=== PATIENT | male | born 1960 | race Caucasian/White ===

== ENCOUNTER → 2016-12-01 | Outpatient (CLI) | payer BC ==
[~2016-12-01] MED LIST: CABOMETYX60 MG PO; CALCIUM CITRATE1 TA1 PO; COLACE 100100 MG/CAP; FLEXERIL 1010 MG/TAB PO; FLONASEALLERGY; HYSINGLA20 PO; IRON325 MG PO; LOTENSIN40 MG PO; MS CONTIN 330 MG/TAB PO; MULTI VITAMINS1 TAB PO; NATURAL IRON65 MG PO; NORCO 325 MG-51 TAB PO; NORCO 325 MG-7.1 TAB PO; NORVASC 10MG10 MG PO; PREDNISONE10 MG PO; TYLENOL 500MG500 MG PO; ZOMETA4 MG/5 ML IV
== END ==
LOC: COL.RAD 09:40
PROVIDERS: Urology
DX: C64.2 Malignant neoplasm of left kidney, except renal pelvis (principal); C79.31 Secondary malignant neoplasm of brain; D38.1 Neoplasm of uncertain behavior of trachea, bronchus and lung; R93.7 Abnormal findings on diagnostic imaging of other parts of musculoskeletal system; R93.422 Abnormal radiologic findings on diagnostic imaging of left kidney
CPT/HCPCS: A9503; Q9967

== ENCOUNTER 2016-12-24 23:30 | Emergency (ER) | payer BC ==
[~2016-12-24] VITALS: Ht 182.9 cm; Wt 136.8 kg
[2016-12-24 23:45] VITALS: BP 151/80; TEMP 98.1
[2016-12-24] MEDS ORDERED: LOTENSIN40 MG PO (23:50)
[2016-12-24] MEDS ORDERED: MULTI VITAMINS1 TAB PO (23:51)
[2016-12-24] MEDS ORDERED: IRON325 MG PO (23:51)
[2016-12-24] MEDS ORDERED: FLONASEALLERGY (23:51)
[2016-12-24] MEDS ORDERED: COLACE 100100 MG/CAP (23:52)
[2016-12-25] MEDS ORDERED: PREDNISONE10 MG PO (01:14)
[2016-12-25] MEDS ORDERED: NORCO 325 MG-51 TAB PO (01:14)
[2016-12-25 02:03] VITALS: PULSE 76
== END 2016-12-25 02:04 | disposition home or self-care (01) ==
LOC: COL.ER 23:30
DX: M54.16 Radiculopathy, lumbar region (principal); W88.0XXA Exposure to X-rays, initial encounter; Y92.239 Unspecified place in hospital as the place of occurrence of the external cause; C79.31 Secondary malignant neoplasm of brain; C79.51 Secondary malignant neoplasm of bone; C64.2 Malignant neoplasm of left kidney, except renal pelvis
CPT/HCPCS: J1170; J2405; J2930

== ENCOUNTER 2017-08-06 04:06 | Observation (INO) | payer BC ==
[~2017-08-06] VITALS: Ht 188 cm; Wt 125.5 kg
[~2017-08-06 04:06] MED LIST changes: -CABOMETYX60 MG PO; -CALCIUM CITRATE1 TA1 PO; -FLEXERIL 1010 MG/TAB PO; -HYSINGLA20 PO; -MS CONTIN 330 MG/TAB PO; -NATURAL IRON65 MG PO; -NORCO 325 MG-7.1 TAB PO; -NORVASC 10MG10 MG PO; -TYLENOL 500MG500 MG PO; -ZOMETA4 MG/5 ML IV
[2017-08-06] MEDS ORDERED: HYSINGLA20 PO (06:00)
[2017-08-06] MEDS ORDERED: CABOMETYX60 MG PO (06:00)
[2017-08-06] MEDS ORDERED: NATURAL IRON65 MG PO (06:00)
[2017-08-06] MEDS ORDERED: NORCO 325 MG-51 TAB PO (06:00)
[2017-08-06] MEDS ORDERED: NORVASC 10MG10 MG PO (06:01)
[2017-08-06] MEDS ORDERED: LOTENSIN40 MG PO (06:01)
[2017-08-06] MEDS ORDERED: TYLENOL 500MG500 MG PO (06:01)
[2017-08-06] MEDS ORDERED: CALCIUM CITRATE1 TA1 PO (06:02)
[2017-08-06 06:20] LABS: BASO % 0.4 % (0.0-2.0); EOS # 0.1 (0.0-0.7); GRAN % 69.4 % (42.2-75.2); HEMATOCRIT 38.9 % (42.0-52.0); HEMOGLOBIN 13.1 g/dl (13.5-18.0); LYMPH # 1.4 (1.2-3.4); LYMPH % 19.4 % (20.0-51.0); MEAN CELL VOLUME 91 fl (80.0-100.0); MEAN CORPUSCULAR HEMOGLOBIN 31 pg (27.0-31.0); MEAN CORPUSCULAR HGB CONC 34 g/dl (33.0-37.0); MEAN PLATELET VOLUME 8.2 fl (7.4-10.4); MONO # 0.6 (0.1-0.6); MONO % 8.5 % (1.7-9.3); PLATELET COUNT 272 K/mm3 (130-400); RED BLOOD COUNT 4.28 M/mm3 (4.20-5.60); REDCELL DISTRIBUTION WIDTH-CV 15.3 % (11.5-14.5); WHITE BLOOD COUNT 7.2 K/mm3 (4.8-10.8)
[2017-08-06 06:32] LABS: ADJUSTED CALCIUM 9.5 mg/dL (8.4-10.2); ALBUMIN 3.6 gm/dL (3.5-5.0); CALCIUM 9.2 mg/dL (8.4-10.2); CREATININE, serum 1.05 mg/dL (0.66-1.25); POTASSIUM 4.9 mmol/L (3.4-5.0); TOTAL PROTEIN 6.5 gm/dL (6.4-8.2)
[2017-08-06 09:38] LABS: PH 6 (5-8); SQUAMOUS EPITHELIAL None Seen /hpf; URINE APPEARANCE Clear; URINE BACTERIA None Seen /hpf; URINE BILIRUBIN Negative (NEGATIVE); URINE BLOOD Negative (NEGATIVE); URINE COLOR Straw; URINE GLUCOSE Negative (NEGATIVE); URINE KETONE Negative (NEGATIVE); URINE RBC 0-2 /hpf; URINE UROBILINOGEN Negative (NEGATIVE); URINE WBC None Seen /hpf
[2017-08-06] MEDS ORDERED: ZOMETA4 MG/5 ML IV (10:37)
[2017-08-06 10:39] VITALS: BP 113/68; PULSE 70; TEMP 98.3
[2017-08-06 15:44] VITALS: BP 106/52; PULSE 73; TEMP 98.5
[2017-08-06 20:30] VITALS: BP 108/64; PULSE 66; TEMP 97.9
[2017-08-07 00:06] VITALS: BP 95/78; PULSE 62; TEMP 97.9
[2017-08-07 04:31] VITALS: BP 105/65; PULSE 65; TEMP 98.2
[2017-08-07 08:00] VITALS: BP 109/67; PULSE 66; TEMP 97.5
[2017-08-07] MEDS ORDERED: FLEXERIL 1010 MG/TAB PO (10:02)
[2017-08-07] MEDS ORDERED: MS CONTIN 330 MG/TAB PO (10:03)
[2017-08-07] MEDS ORDERED: NORCO 325 MG-7.1 TAB PO (10:03)
== END 2017-08-07 11:52 | disposition home or self-care (01) ==
LOC: COL.ER 04:06 → MEDICAL 08:52
PROVIDERS: Emergency Medicine
DX: M48.56XA Collapsed vertebra, not elsewhere classified, lumbar region, initial encounter for fracture (principal); C64.9 Malignant neoplasm of unspecified kidney, except renal pelvis; I10 Essential (primary) hypertension; C78.00 Secondary malignant neoplasm of unspecified lung; C77.1 Secondary and unspecified malignant neoplasm of intrathoracic lymph nodes; C79.70 Secondary malignant neoplasm of unspecified adrenal gland; E66.9 Obesity, unspecified; Z80.8 Family history of malignant neoplasm of other organs or systems; Z81.8 Family history of other mental and behavioral disorders
CPT/HCPCS: G0378; G8987-GO; G8988-GO; J2270; J7030; Q9967

== ENCOUNTER 2018-02-22 07:30 | Outpatient (RCR) | payer BC ==
[~2018-02-22 07:30] MED LIST changes: +CABOMETYX60 MG PO; +CALCIUM CITRATE1 TA1 PO; +FLEXERIL 1010 MG/TAB PO; +HYSINGLA20 PO; +MS CONTIN 330 MG/TAB PO; +NATURAL IRON65 MG PO; +NORCO 325 MG-7.1 TAB PO; +NORVASC 10MG10 MG PO; +TYLENOL 500MG500 MG PO; +ZOMETA4 MG/5 ML IV
[2018-02-22] MEDS ORDERED: [UNRECOGNIZED DRUG - CODE] PO (07:49)
[2018-02-22 08:39] VITALS: BP 106/53; PULSE 68; TEMP 98.3
[2018-02-22 09:03] VITALS: BP 106/50; PULSE 16; TEMP 98.3
[2018-02-22 10:26] VITALS: BP 101/54; PULSE 65; TEMP 98.1
[2018-04-26] MEDS ORDERED: ZYRTEC ALLERGY10 MG PO (15:06)
[2018-04-26] MEDS ORDERED: LENVIMA18 MG PO (15:07)
[2018-05-01] MEDS ORDERED: PACERONE400 MG PO (13:30)
[2018-05-01] MEDS ORDERED: IPRATROPIUM BROM3 M1 IH (13:30)
[2018-05-01] MEDS ORDERED: ATIVAN 1MG T1 MG/TAB PO (13:31)
[2018-05-01] MEDS ORDERED: ROXANOL 20MG20 MG/ML SL (13:31)
[2018-05-01] MEDS ORDERED: SENOKOT S 50 MG1 TAB PO (13:32)
[2018-05-01] MEDS ORDERED: DULCOLAX S10 MG/SUPP RC (13:32)
[2018-05-01] MEDS ORDERED: SYNTHROID 0.0.025 MG PO (13:33)
[2018-05-01] MEDS ORDERED: TRANSDERM-0.5 MG/21 TD (13:33)
[2018-05-01] MEDS ORDERED: MELAT3MGTAB PO (13:33)
[2018-05-01] MEDS ORDERED: ZOFRAN ODT4 MG PO (13:34)
[2018-05-01] MEDS ORDERED: LEVAQUIN 750MG750 M1 PO ×2 (14:33)
[2018-05-03] MEDS ORDERED: OMNICEF 300MG300 MG PO (14:23)
== END 2018-05-22 | disposition home or self-care (01) ==
LOC: EUO → EDSTATUS 07:30
DX: C64.2 Malignant neoplasm of left kidney, except renal pelvis (principal); C77.2 Secondary and unspecified malignant neoplasm of intra-abdominal lymph nodes; C78.01 Secondary malignant neoplasm of right lung; C78.02 Secondary malignant neoplasm of left lung; C79.31 Secondary malignant neoplasm of brain; C79.51 Secondary malignant neoplasm of bone
CPT/HCPCS: J7050; P9016

== ENCOUNTER 2018-04-26 14:39 | Inpatient (IN) | payer BC ==
[~2018-04-26] VITALS: Ht 185.4 cm; Wt 120.4 kg
[~2018-04-26 14:39] MED LIST changes: +[UNRECOGNIZED DRUG - CODE] PO
[2018-04-26] MEDS ORDERED: ZYRTEC ALLERGY10 MG PO (15:06)
[2018-04-26] MEDS ORDERED: LENVIMA18 MG PO (15:07)
[2018-04-26 15:41] LABS: BASO # 0.1 (0.0-0.2); BASO % 0.4 % (0.0-2.0); EOS % 0.3 % (0-4.0); GRAN # 11.3 (1.4-6.5); HEMATOCRIT 26.1 % (42.0-52.0); LYMPH % 7.4 % (20.0-51.0); MEAN CELL VOLUME 82 fl (80.0-100.0); MEAN CORPUSCULAR HEMOGLOBIN 25 pg (27.0-31.0); MEAN CORPUSCULAR HGB CONC 31 g/dl (33.0-37.0); MEAN PLATELET VOLUME 8.7 fl (7.4-10.4); MONO # 1.3 (0.1-0.6); MONO % 9.5 % (1.7-9.3); PLATELET COUNT 454 K/mm3 (130-400); RED BLOOD COUNT 3.19 M/mm3 (4.20-5.60); REDCELL DISTRIBUTION WIDTH-CV 18.4 % (11.5-14.5)
[2018-04-26 15:51] LABS: ALBUMIN 2.5 gm/dL (3.5-5.0); BILIRUBIN,TOTAL 0.3 mg/dL (0.0-1.0); CALCIUM 7.8 mg/dL (8.4-10.2); CREATININE, serum 3.79 mg/dL (0.66-1.25); MAGNESIUM 2.1 mg/dL (1.6-2.3); TOTAL PROTEIN 5.4 gm/dL (6.4-8.2)
[2018-04-26 15:52] LABS: POTASSIUM 5.8 mmol/L (3.4-5.0)
[2018-04-26 16:04] LABS: TROPONIN-I 0.523 ng/mL (0.000-0.034)
[2018-04-26 16:11] LABS: C-REACTIVE PROTEIN 17.8 mg/dL (0.0-0.9)
[2018-04-26 16:30] LABS: COLLECTION METHOD CLEAN CATCH
[2018-04-26 16:36] LABS: MUCOUS Present /lpf; PH 5 (5-8); SQUAMOUS EPITHELIAL None Seen /hpf; URINE APPEARANCE Cloudy; URINE BACTERIA None Seen /hpf; URINE BILIRUBIN Negative (NEGATIVE); URINE BLOOD Negative (NEGATIVE); URINE COLOR Yellow; URINE GLUCOSE Negative (NEGATIVE); URINE KETONE Negative (NEGATIVE); URINE LEUKOCYTE ESTERASE Negative (NEGATIVE); URINE NITRATE Negative (NEGATIVE); URINE PROTEIN(semi-quant) 3+ (NEGATIVE); URINE RBC 0-2 /hpf; URINE UROBILINOGEN Negative (NEGATIVE)
[2018-04-26 17:59] VITALS: BP 96/41; PULSE 65; TEMP 99
[2018-04-26 19:57] VITALS: BP 87/46; PULSE 79; TEMP 98.6
[2018-04-26 21:38] VITALS: BP 91/52; PULSE 72
[2018-04-27 01:10] VITALS: BP 92/42; PULSE 63; TEMP 98.4
[2018-04-27 03:47] VITALS: BP 100/37; PULSE 67; TEMP 98.6
[2018-04-27 07:58] LABS: BASO % 0.2 % (0.0-2.0); GRAN # 13.2 (1.4-6.5); GRAN % 88.8 % (42.2-75.2); HEMATOCRIT 25.8 % (42.0-52.0); HEMOGLOBIN 7.7 g/dl (13.5-18.0); LYMPH # 0.5 (1.2-3.4); LYMPH % 3.6 % (20.0-51.0); MEAN CELL VOLUME 83 fl (80.0-100.0); MEAN CORPUSCULAR HEMOGLOBIN 25 pg (27.0-31.0); MEAN CORPUSCULAR HGB CONC 30 g/dl (33.0-37.0); MEAN PLATELET VOLUME 8.9 fl (7.4-10.4); MONO # 0.9 (0.1-0.6); MONO % 6.3 % (1.7-9.3); PLATELET COUNT 446 K/mm3 (130-400); RED BLOOD COUNT 3.12 M/mm3 (4.20-5.60); REDCELL DISTRIBUTION WIDTH-CV 18.6 % (11.5-14.5)
[2018-04-27 08:13] VITALS: BP 111/46; PULSE 79; TEMP 98.3
[2018-04-27 08:13] LABS: ALBUMIN 2.6 gm/dL (3.5-5.0); BILIRUBIN,TOTAL 0.3 mg/dL (0.0-1.0); CALCIUM 7.6 mg/dL (8.4-10.2); MAGNESIUM 2.1 mg/dL (1.6-2.3); TOTAL PROTEIN 5.5 gm/dL (6.4-8.2)
[2018-04-27 08:32] LABS: CREATININE, serum 4.17 mg/dL (0.66-1.25); POTASSIUM 6.2 mmol/L (3.4-5.0); TROPONIN-I 0.48 ng/mL (0.000-0.034)
[2018-04-27 08:58] LABS: INR 1.2 (0.8-3.0); PROTHROMBIN TIME 13.4 SECONDS (9.7-12.8)
[2018-04-27 11:38] VITALS: BP 120/49; PULSE 79; TEMP 98.4
[2018-04-27 16:30] VITALS: BP 114/52; PULSE 69; TEMP 98.3
[2018-04-27 21:08] VITALS: BP 118/47; PULSE 81; TEMP 98.6
[2018-04-27 23:15] LABS: CREATININE, serum 4.29 mg/dL (0.66-1.25); FRACTIONAL EXCRETION OF NA+ 0.3 %
[2018-04-28 00:57] VITALS: BP 117/51; PULSE 77; TEMP 98.6
[2018-04-28 03:42] VITALS: BP 120/57; PULSE 84; TEMP 98.9
[2018-04-28 07:31] VITALS: BP 117/49; PULSE 80; TEMP 98.3
[2018-04-28 08:10] LABS: MEAN CELL VOLUME 81 fl (80.0-100.0); MEAN CORPUSCULAR HGB CONC 31 g/dl (33.0-37.0); MEAN PLATELET VOLUME 8.9 fl (7.4-10.4); PLATELET COUNT 414 K/mm3 (130-400); RED BLOOD COUNT 2.77 M/mm3 (4.20-5.60); REDCELL DISTRIBUTION WIDTH-CV 18.6 % (11.5-14.5)
[2018-04-28 08:15] LABS: HEMATOCRIT 22.3 % (42.0-52.0); HEMOGLOBIN 6.9 g/dl (13.5-18.0); INR 1.2 (0.8-3.0); MEAN CORPUSCULAR HEMOGLOBIN 25 pg (27.0-31.0); PROTHROMBIN TIME 13.8 SECONDS (9.7-12.8)
[2018-04-28 08:19] LABS: ALBUMIN 2.5 gm/dL (3.5-5.0); BILIRUBIN,TOTAL 0.2 mg/dL (0.0-1.0); CALCIUM 6.6 mg/dL (8.4-10.2); POTASSIUM 4.5 mmol/L (3.4-5.0); TOTAL PROTEIN 5.4 gm/dL (6.4-8.2)
[2018-04-28 08:33] LABS: CREATININE, serum 4.26 mg/dL (0.66-1.25)
[2018-04-28 10:32] LABS: ANISOCYTOSIS 2+; BAND 4 % (0-10); HYPOCHROMIA 1+; LYMPHOCYTE 2 % (20.0-51.0); NEUTROPHILS 94 % (42.0-75.2); PLATELET ESTIMATE INCREASED (NORMAL)
[2018-04-28 10:33] LABS: OVALOCYTES 1+
[2018-04-28 16:00] VITALS: BP 104/44; PULSE 78; TEMP 97.9
[2018-04-28 18:19] LABS: HEMATOCRIT 21.9 % (42.0-52.0); HEMOGLOBIN 6.9 g/dl (13.5-18.0)
[2018-04-28 19:14] VITALS: BP 105/46; PULSE 77; TEMP 98.6
[2018-04-29] VITALS (19 sets, daily range): BP systolic 91–116; BP diastolic 37–51; PULSE 72–79; TEMP 97.7–99.1
[2018-04-29 06:46] LABS: MEAN CELL VOLUME 81 fl (80.0-100.0); MEAN CORPUSCULAR HGB CONC 31 g/dl (33.0-37.0); MEAN PLATELET VOLUME 8.9 fl (7.4-10.4); PLATELET COUNT 416 K/mm3 (130-400); RED BLOOD COUNT 2.72 M/mm3 (4.20-5.60); REDCELL DISTRIBUTION WIDTH-CV 18.6 % (11.5-14.5)
[2018-04-29 06:47] LABS: HEMATOCRIT 22.1 % (42.0-52.0); HEMOGLOBIN 6.8 g/dl (13.5-18.0); MEAN CORPUSCULAR HEMOGLOBIN 25 pg (27.0-31.0)
[2018-04-29 06:53] LABS: RETIC # 0.02 M/mm3 (0.02-0.16); RETIC % 0.9 % (0.5-3.52)
[2018-04-29 07:01] LABS: ALBUMIN 2.4 gm/dL (3.5-5.0); BILIRUBIN,TOTAL 0.3 mg/dL (0.0-1.0); CALCIUM 6.4 mg/dL (8.4-10.2); INR 1.2 (0.8-3.0); POTASSIUM 3.8 mmol/L (3.4-5.0); PROTHROMBIN TIME 13.3 SECONDS (9.7-12.8); TOTAL PROTEIN 5.2 gm/dL (6.4-8.2)
[2018-04-29 07:15] LABS: CREATININE, serum 4.86 mg/dL (0.66-1.25)
[2018-04-29 08:31] LABS: ANISOCYTOSIS 3+; BAND 6 % (0-10); HYPOCHROMIA 1+; LYMPHOCYTE 6 % (20.0-51.0); MICROCYTOSIS 1+; NEUTROPHILS 83 % (42.0-75.2); OVALOCYTES 1+; PLATELET ESTIMATE INCREASED (NORMAL)
[2018-04-30] VITALS (7 sets, daily range): BP systolic 87–104; BP diastolic 33–45; PULSE 50–83; TEMP 97.7–98.7
[2018-04-30 07:50] LABS: BASO % 0.2 % (0.0-2.0); EOS # 0.1 (0.0-0.7); EOS % 0.5 % (0-4.0); GRAN # 10.5 (1.4-6.5); GRAN % 82.1 % (42.2-75.2); LYMPH # 0.9 (1.2-3.4); LYMPH % 6.7 % (20.0-51.0); MEAN CELL VOLUME 79 fl (80.0-100.0); MEAN CORPUSCULAR HGB CONC 32 g/dl (33.0-37.0); MEAN PLATELET VOLUME 8.9 fl (7.4-10.4); MONO # 1.3 (0.1-0.6); PLATELET COUNT 432 K/mm3 (130-400); RED BLOOD COUNT 2.96 M/mm3 (4.20-5.60); REDCELL DISTRIBUTION WIDTH-CV 18.2 % (11.5-14.5)
[2018-04-30 07:53] LABS: CALCIUM 6.8 mg/dL (8.4-10.2); POTASSIUM 4.1 mmol/L (3.4-5.0)
[2018-04-30 07:57] LABS: HEMATOCRIT 23.4 % (42.0-52.0); HEMOGLOBIN 7.5 g/dl (13.5-18.0); MEAN CORPUSCULAR HEMOGLOBIN 25 pg (27.0-31.0)
[2018-04-30 07:59] LABS: CREATININE, serum 5.81 mg/dL (0.66-1.25)
[2018-05-01] VITALS (19 sets, daily range): BP systolic 61–99; BP diastolic 24–44; PULSE 49–60; TEMP 97.7–98.2
[2018-05-01 07:44] LABS: CALCIUM 6.7 mg/dL (8.4-10.2); POTASSIUM 4.5 mmol/L (3.4-5.0)
[2018-05-01 07:47] LABS: CREATININE, serum 6.9 mg/dL (0.66-1.25)
[2018-05-01 08:32] LABS: BASO % 0.2 % (0.0-2.0); EOS % 0.2 % (0-4.0); GRAN # 11.1 (1.4-6.5); GRAN % 84.1 % (42.2-75.2); LYMPH # 0.8 (1.2-3.4); LYMPH % 5.7 % (20.0-51.0); MEAN CELL VOLUME 80 fl (80.0-100.0); MEAN CORPUSCULAR HGB CONC 32 g/dl (33.0-37.0); MONO # 1.2 (0.1-0.6); MONO % 9.1 % (1.7-9.3); PLATELET COUNT 406 K/mm3 (130-400); RED BLOOD COUNT 2.57 M/mm3 (4.20-5.60); REDCELL DISTRIBUTION WIDTH-CV 18.4 % (11.5-14.5)
[2018-05-01 08:37] LABS: HEMATOCRIT 20.6 % (42.0-52.0); MEAN CORPUSCULAR HEMOGLOBIN 26 pg (27.0-31.0)
[2018-05-01 08:38] LABS: HEMOGLOBIN 6.6 g/dl (13.5-18.0)
[2018-05-01] MEDS ORDERED: IPRATROPIUM BROM3 M1 IH (13:30)
[2018-05-01] MEDS ORDERED: PACERONE400 MG PO (13:30)
[2018-05-01] MEDS ORDERED: ATIVAN 1MG T1 MG/TAB PO (13:31)
[2018-05-01] MEDS ORDERED: ROXANOL 20MG20 MG/ML SL (13:31)
[2018-05-01] MEDS ORDERED: DULCOLAX S10 MG/SUPP RC (13:32)
[2018-05-01] MEDS ORDERED: SENOKOT S 50 MG1 TAB PO (13:32)
[2018-05-01] MEDS ORDERED: MELAT3MGTAB PO (13:33)
[2018-05-01] MEDS ORDERED: TRANSDERM-0.5 MG/21 TD (13:33)
[2018-05-01] MEDS ORDERED: SYNTHROID 0.0.025 MG PO (13:33)
[2018-05-01] MEDS ORDERED: ZOFRAN ODT4 MG PO (13:34)
[2018-05-01] MEDS ORDERED: LEVAQUIN 750MG750 M1 PO ×2 (14:33)
== END 2018-05-01 19:01 | disposition hospice, home (50) | DRG 871 ==
LOC: COL.ER 14:39 → MEDICAL 17:01
PROVIDERS: Emergency Medicine; Internal Medicine; Internal Medicine Nephrology
DX: A41.9 Sepsis, unspecified organism (principal); J18.9 Pneumonia, unspecified organism; I21.4 Non-ST elevation (NSTEMI) myocardial infarction; C78.7 Secondary malignant neoplasm of liver and intrahepatic bile duct; E87.2 Acidosis; Z51.5 Encounter for palliative care; Z66 Do not resuscitate; C78.02 Secondary malignant neoplasm of left lung; C64.2 Malignant neoplasm of left kidney, except renal pelvis; I95.9 Hypotension, unspecified; I48.91 Unspecified atrial fibrillation; D63.0 Anemia in neoplastic disease; E88.09 Other disorders of plasma-protein metabolism, not elsewhere classified; C64.1 Malignant neoplasm of right kidney, except renal pelvis; E87.5 Hyperkalemia; C78.01 Secondary malignant neoplasm of right lung; I12.9 Hypertensive chronic kidney disease with stage 1 through stage 4 chronic kidney disease, or unspecified chronic kidney disease; N18.9 Chronic kidney disease, unspecified; D69.6 Thrombocytopenia, unspecified; Z92.21 Personal history of antineoplastic chemotherapy
CPT/HCPCS: 99223-AI; 99232-AI; 99233-AI; 99239; J0692; J1720; J1940; J1956; J2405; J3370; J7030; J7040; P9016